=== PATIENT | female | born 1985 | race Caucasian/White ===

== ENCOUNTER 2016-10-20 16:53 | Emergency (ER) | payer MEDICARE ==
[2014-10-31 10:47] VITALS: BMI 26.6
[~2016-10-20 16:53] MED LIST: FLOVENT HFA 410.6 GM INH; MULTIPLE VITAMI1 TA1 PO; ULTRAM50 MG PO; VENTOLIN HFA18 GM INH
[2016-10-20 17:28] LABS: HEMATOCRIT 39.7 % (36.0-48.0); HEMOGLOBIN 13.8 g/dL (12-16); MCH 29.2 pg (26.0-34.0); MCHC 34.8 g/dL (31.0-37.0); MCV 84.1 fL (80.0-100.0); MEAN PLATELET VOLUME 9.3 fL (7.4-10.4); PLATELET COUNT 199 10x3/uL (130-400); RBC 4.72 10x6/uL (4.00-5.40); RDW 12.6 % (11.5-14.5); WBC 6.1 10x3/uL (4.8-10.8)
[2016-10-20 17:40] LABS: APPEARANCE CLEAR (CLEAR); BILIRUBIN NEGATIVE (NEGATIVE); COLOR YELLOW (YELLOW); GLUCOSE NEGATIVE (NEGATIVE); KETONE NEGATIVE (NEGATIVE); LEUKOCYTE ESTERASE NEGATIVE (NEGATIVE); NITRITE NEGATIVE (NEGATIVE); PROTEIN NEGATIVE (NEGATIVE); UROBILINOGEN NORMAL (NORMAL)
[2016-10-20 17:58] LABS: HCG SERUM NEGATIVE (NEGATIVE)
[2016-10-20 18:42] LABS: EOSINOPHILS 4 % (0-7); LYMPHOCYTES 57 % (15-50); MONOCYTES 2 % (2-11); NEUTROPHILS 37 % (40-80); PLATELET ESTIMATE NORMAL
== END 2016-10-20 21:52 | disposition home or self-care (01) ==
LOC: D.ER 16:53
PROVIDERS: Emergency Medicine
DX: R10.9 Unspecified abdominal pain (principal); K58.9 Irritable bowel syndrome, unspecified; K59.00 Constipation, unspecified

== ENCOUNTER 2017-04-28 07:24 | Emergency (ER) | payer MEDICARE ==
[2014-10-31 10:47] VITALS: BMI 26.6
[2017-04-28 07:53] LABS: BASOPHILS 0.2 % (0-2); EOSINOPHILS 0.9 % (0-7); HEMOGLOBIN 15.3 g/dL (12-16); IMMATURE GRANULOCYTES 0.2 % (0-5); LYMPHOCYTES 27.2 % (15-50); MCH 28.5 pg (26.0-34.0); MCHC 34.8 g/dL (31.0-37.0); MCV 81.9 fL (80.0-100.0); MEAN PLATELET VOLUME 9.7 fL (7.4-10.4); MONOCYTES 4.2 % (2-11); NEUTROPHILS 67.3 % (40-80); PLATELET COUNT 219 10x3/uL (130-400); RBC 5.37 10x6/uL (4.00-5.40); RDW 13.6 % (11.5-14.5); WBC 9.5 10x3/uL (4.8-10.8)
[2017-04-28 08:02] LABS: ALBUMIN 4.1 g/dL (3.4-5.0); ALKALINE PHOSPHATASE 49 U/L (46-116); ALT (SGPT) 22 U/L (10-68); AMYLASE - SERUM 38 U/L (25-115); BILIRUBIN - TOTAL 0.58 mg/dL (0.2-1.3); CALC OSMOLALITY 274 mosm/kg (275-300); CALCIUM 9.6 mg/dL (8.5-10.1); CHLORIDE - SERUM 100 mmol/L (98-107); CREATININE - SERUM 0.9 mg/dL (0.6-1.3); LIPASE 81 U/L (73-393); POTASSIUM - SERUM 4.2 mmol/L (3.5-5.1); PROTEIN - SERUM 7.6 g/dL (6.4-8.2); SODIUM 136 mmol/L (136-145); UREA NITROGEN 16 mg/dL (7-18); eGFR NON AFRICAN AMERICAN 77 mL/min (90-120)
[2017-04-28 08:03] LABS: GLUCOSE 132 mg/dL (74-106)
[2017-04-28 08:18] LABS: HCG URINE NEGATIVE (NEGATIVE)
[2017-04-28 08:19] LABS: APPEARANCE HAZY (CLEAR); BILIRUBIN NEGATIVE (NEGATIVE); COLOR YELLOW (YELLOW); GLUCOSE NEGATIVE (NEGATIVE); KETONE NEGATIVE (NEGATIVE); NITRITE NEGATIVE (NEGATIVE); PROTEIN NEGATIVE (NEGATIVE); SPECIFIC GRAVITY 1.005 (1.005-1.020); UROBILINOGEN NORMAL (NORMAL)
[2017-04-28 08:20] LABS: BACTERIA MODERATE /hpf (NONE SEEN); MUCUS <1+ /lpf (NONE SEEN); WHITE CELLS - URINE OCC /hpf (0-5)
[2017-05-06 19:12] LABS: AEROBE ID Final report (())
== END 2017-04-28 11:02 | disposition home or self-care (01) ==
LOC: D.ER 07:24
PROVIDERS: Family Medicine
DX: K59.00 Constipation, unspecified (principal); R10.9 Unspecified abdominal pain; F17.200 Nicotine dependence, unspecified, uncomplicated

== ENCOUNTER 2019-09-24 18:22 | Emergency (ER) | payer OTHER ==
[~2019-09-24] VITALS: Ht 160 cm; Wt 65.9 kg
[2019-09-24 18:31] VITALS: BP 123/72; Ht 160 cm; Wt 65.9 kg
[2019-09-24] MEDS ORDERED: LAMICTAL100 MG PO (18:33)
[2019-09-24] MEDS ORDERED: BUSPAR10 MG PO (18:33)
[2019-09-24] MEDS ORDERED: [UNRECOGNIZED DRUG - OTHER] PO (18:34)
[2019-09-24] MEDS ORDERED: CYCLOBENZAPRINE10 MG PO (19:19)
[2019-09-24] MEDS ORDERED: TYLENOL ARTHRI650 MG PO (19:19)
== END 2019-09-24 20:16 | disposition home or self-care (01) ==
LOC: D.ER 18:22
DX: M62.838 Other muscle spasm (principal); S29.012A Strain of muscle and tendon of back wall of thorax, initial encounter; V89.2XXA Person injured in unspecified motor-vehicle accident, traffic, initial encounter; W22.10XA Striking against or struck by unspecified automobile airbag, initial encounter; Y93.9 Activity, unspecified; Y92.9 Unspecified place or not applicable; S13.4XXA Sprain of ligaments of cervical spine, initial encounter; J45.909 Unspecified asthma, uncomplicated

== ENCOUNTER 2020-12-16 19:50 | Emergency (ER) | payer OTHER ==
[~2020-12-16] VITALS: Ht 160 cm; Wt 68.2 kg
[~2020-12-16 19:50] MED LIST changes: +BUSPAR10 MG PO; +CYCLOBENZAPRINE10 MG PO; +LAMICTAL100 MG PO; +TYLENOL ARTHRI650 MG PO; +[UNRECOGNIZED DRUG - OTHER] PO
[2020-12-16 20:00] VITALS: Ht 160 cm; Wt 68.2 kg
[2020-12-16] MEDS ORDERED: ABILIFY2 MG PO (20:03)
[2020-12-16 20:49] LABS: BASOPHILS 0.6 % (0-2); EOSINOPHILS 3.4 % (0-7); HEMATOCRIT 39.7 % (36.0-48.0); HEMOGLOBIN 13.4 g/dL (12-16); LYMPHOCYTES 41.5 % (15-50); MCH 27.2 pg (26.0-34.0); MCHC 33.7 g/dL (31.0-37.0); MCV 80.9 fL (80.0-100.0); MEAN PLATELET VOLUME 7.8 fL (7.4-10.4); MONOCYTES 10.1 % (2-11); NEUTROPHILS 44.4 % (40-80); RBC 4.91 10x6/uL (4.00-5.40); RDW 13.6 % (11.5-14.5); WBC 6.6 10x3/uL (4.8-10.8)
[2020-12-16 20:50] LABS: PLATELET COUNT 275 10x3/uL (130-400)
[2020-12-16 20:54] LABS: BILIRUBIN NEGATIVE (NEGATIVE); HCG URINE NEGATIVE (NEGATIVE); KETONE NEGATIVE (NEGATIVE); NITRITE NEGATIVE (NEGATIVE); UROBILINOGEN NORMAL mg/dL (< 2)
[2020-12-16 20:59] LABS: CALC OSMOLALITY 283 mosm/kg (275-300); CALCIUM 8.6 mg/dL (8.5-10.1); CARBON DIOXIDE 32.5 mmol/L (21.0-32.0); CHLORIDE - SERUM 104 mmol/L (98-107); CREATININE - SERUM 0.7 mg/dL (0.6-1.3); GLUCOSE 93 mg/dL (74-106); POTASSIUM - SERUM 3.7 mmol/L (3.5-5.1); SODIUM 143 mmol/L (136-145); UREA NITROGEN 10 mg/dL (7-18); eGFR NON AFRICAN AMERICAN > 90 mL/min (90-120)
[2020-12-16 21:05] LABS: ALBUMIN 3.2 g/dL (3.4-5.0); ALKALINE PHOSPHATASE 72 U/L (30-120); ALT (SGPT) 17 U/L (10-68); BILIRUBIN - TOTAL 0.15 mg/dL (0.2-1.3); LIPASE 67 U/L (73-393)
[2020-12-16 21:57] LABS: UDS - AMPHET NEGATIVE QUAL (NEGATIVE); UDS - BARB NEGATIVE QUAL (NEGATIVE); UDS - BENZO POSITIVE QUAL (NEGATIVE); UDS - COCAINE NEGATIVE QUAL (NEGATIVE); UDS - OPIATE NEGATIVE QUAL (NEGATIVE); UDS - PCP NEGATIVE QUAL (NEGATIVE); UDS - THC POSITIVE QUAL (NEGATIVE)
[2020-12-16] MEDS ORDERED: BENTYL 20 MG TA20 MG PO (22:18)
[2020-12-17 00:36] VITALS: BP 132/77
== END 2020-12-17 00:37 | disposition home or self-care (01) ==
LOC: D.ER 19:50
PROVIDERS: Student in an Organized Health Care Education/Training Program
DX: K81.1 Chronic cholecystitis (principal); J45.909 Unspecified asthma, uncomplicated; R10.9 Unspecified abdominal pain; R11.10 Vomiting, unspecified

== ENCOUNTER 2020-12-31 07:51 | Day surgery (SDC) | payer OTHER ==
[~2020-12-31] VITALS: Ht 160 cm; Wt 69.9 kg
[~2020-12-31 07:51] MED LIST changes: +ABILIFY2 MG PO; +BENTYL 20 MG TA20 MG PO
[2020-12-31 08:30] LABS: CALC OSMOLALITY 279 mosm/kg (275-300); CARBON DIOXIDE 28.6 mmol/L (21.0-32.0); CHLORIDE - SERUM 102 mmol/L (98-107); CREATININE - SERUM 0.9 mg/dL (0.6-1.3); GLUCOSE 112 mg/dL (74-106); POTASSIUM - SERUM 3.7 mmol/L (3.5-5.1); SODIUM 139 mmol/L (136-145); UREA NITROGEN 15 mg/dL (7-18); eGFR NON AFRICAN AMERICAN 75 mL/min (90-120)
[2020-12-31 08:46] LABS: HCG SERUM NEGATIVE (NEGATIVE)
[2020-12-31 09:27] LABS: HEMATOCRIT 37.2 % (36.0-48.0); HEMOGLOBIN 12.6 g/dL (12-16); MCH 27.4 pg (26.0-34.0); MCV 80.6 fL (80.0-100.0); MEAN PLATELET VOLUME 7.8 fL (7.4-10.4); RBC 4.61 10x6/uL (4.00-5.40); RDW 14.2 % (11.5-14.5); WBC 6.6 10x3/uL (4.8-10.8)
[2020-12-31 09:35] LABS: PLATELET COUNT 331 10x3/uL (130-400)
[2020-12-31] MEDS ORDERED: KLONOPIN1 MG PO (10:35)
[2020-12-31 10:37] VITALS: BP 94/56; Ht 160 cm; Wt 69.9 kg
[2020-12-31] MEDS ORDERED: BUPRENORPHINE HC8 MG SL (10:48)
[2020-12-31] MEDS ORDERED: LEVOFLOXACIN500 MG PO (13:08)
[2020-12-31] MEDS ORDERED: HYDROCODON-ACE1 EAC7 PO (13:08)
[2020-12-31] MEDS ORDERED: PROTONIX20 MG PO (13:09)
[2020-12-31 14:10] LABS: EOSINOPHILS 2 % (0-7); LYMPHOCYTES 32 % (15-50); MONOCYTES 11 % (2-11); NEUTROPHILS 54 % (40-80); PLATELET ESTIMATE NORMAL
--- NOTE | 2020-12-31 16:27 | NUR ---
1600 IV D/C'D WITH TIP INTACT.
--- NOTE | 2020-12-31 16:28 | NUR ---
1615 PATIENT COMPLAINED OF PAIN AND ASKED TO BE MEDICATED PRIOR TO DISCHARGE HOME. HYDROCODONE 5/325 ONE GIVEN PO FOR PAIN LEVEL OF 7/10.
--- NOTE | 2020-12-31 16:59 | NUR ---
1650 DISHCARGE INSTRUCTIONS COMPLETED WITH SPOUSE PATIENT WAS TOO DROWSY. DISCHARGED TO PRIVATE CAR VIA WHEELCHAIR.
== END 2020-12-31 16:50 | disposition home or self-care (01) ==
LOC: D.OPS 07:51
PROVIDERS: Anesthesiology; ATTEND Surgery
DX: R10.10 Upper abdominal pain, unspecified (principal); K82.8 Other specified diseases of gallbladder; K81.1 Chronic cholecystitis; F41.9 Anxiety disorder, unspecified; G89.4 Chronic pain syndrome; F17.200 Nicotine dependence, unspecified, uncomplicated